=== PATIENT | female | born 1990 | race Caucasian/White ===

== ENCOUNTER 2020-07-20 14:21 | Emergency (ER) | payer OTHER ==
[~2020-07-20] VITALS: Ht 165.1 cm; Wt 100.0 kg
[2020-07-20 16:39] VITALS: BP 132/70; PULSE 78
== END 2020-07-20 16:39 | disposition home or self-care (01) ==
LOC: COL.ER 14:21
DX: S10.0XXA Contusion of throat, initial encounter (principal); F17.210 Nicotine dependence, cigarettes, uncomplicated; Y04.8XXA Assault by other bodily force, initial encounter